=== PATIENT | female | born 1995 | race Caucasian/White ===

== ENCOUNTER 2018-01-08 18:21 | Emergency (ER) | payer MEDICAID ==
--- NOTE | 2018-01-08 19:10 | EDPHY ---
H & P Stated Complaint: hit head on snow snowboarding, h/a, n/v, no loc Time Seen by Provider: 01/08/18 19:10 HPI/ROS: HPI CHIEF COMPLAINT: Fall, head injury HISTORY OF PRESENT ILLNESS: 22-year-old female, visiting from [place], visiting a friend here, [place], she fell backwards and struck her head. She was not wearing helmet. This happened over 2 hr ago. She complains of a posterior headache and frontal headache with throbbing in nature. Also complains of neck pain. Denies chest pain or shortness of breath. Feels nauseous. She did have 1 [place] Past Medical History: Denies medical history Past Surgical History: Denies surgical history Social History: Denies drugs alcohol tobacco. Family History: Noncontributory ROS REVIEW OF SYSTEMS: 10 Systems were reviewed and negative with the exception of the elements mentioned in the history of present illness. Exam Constitutional nontoxic triage nursing summary reviewed, vital signs reviewed, awake/alert. Eyes normal conjunctivae and sclera, EOMI, PERRLA. HENT head/neck atraumatic on exam no midline cervical spine pain or step-offs, moist mucus membranes, no epistaxis, neck supple/ no meningismus, no raccoon eyes. Respiratory clear to auscultation bilaterally, normal breath sounds, no respiratory distress, no wheezing. Cardiovascular rate normal, regular rhythm, no murmur, no edema, distal pulses normal. Gastrointestinal soft, non-tender, no rebound, no guarding, normal bowel sounds, no distension, no pulsatile mass. Genitourinary no CVA tenderness. Musculoskeletal no midline vertebral tenderness, full range of motion, no calf swelling, no tenderness of extremities, no meningismus, good pulses, neurovascularly intact. Skin pink, warm, & dry, no rash, skin atraumatic. Neurologic normal neurological exam awake, alert and oriented x 3, AAOx3, moves all 4 extremities equally, motor intact, sensory intact, CN II-XII intact , normal cerebellar, normal vision, normal speech. Psychiatric normal mood/affect. Heme/Lymph/Immune no lymphadenopathy. Differential Diagnosis: Includes but is not limited to in a particular order closed-head injury, intracranial bleed, subdural, traumatic subarachnoid, skull fracture, concussion Medical Decision Making: Plan for this patient CT scan head without contrast and CT cervical spine without contrast reason for the scans head trauma nausea vomiting head strike on ground without a helmet. Re-evaluation: Additionally patient be given Tylenol Motrin for pain control. CT head and neck. Re-evaluate. CT scan head without contrast and CT cervical spine without contrast for trauma in the setting of head injury with vomiting after she struck her head against the ground snowboarding shows no acute skull fracture brain bleed or cervical spine injury. Called to me by Dr. Bardales. Patient clinically has a closed head injury with concussion. I have given her concussion follow-up instructions. Recommend she takes it easy over the next few days, low stimulus environment, stays well hydrated, anti-inflammatory pain medicine. Nausea medicine. Return precautions discussed with the patient as well as her friend at bedside. They understand. Source: Patient - Personal History LMP (Females 10-55): 8-14 Days Ago Current Tetanus/Diphtheria Vaccine: Unsure Current Tetanus Diphtheria and Acellular Pertussis (TDAP): Unsure - Medical/Surgical History Hx Asthma: No Hx Chronic Respiratory Disease: No Hx Diabetes: No Hx Cardiac Disease: No Hx Renal Disease: No Hx Cirrhosis: No Hx Alcoholism: No Hx HIV/AIDS: No Hx Splenectomy or Spleen Trauma: No Other PMH: denies - Social History Smoking Status: Never smoked Constitutional: Initial Vital Signs Temperature (C) 36.5 C 01/08/18 18:22 Heart Rate 68 01/08/18 18:22 Respiratory Rate 16 01/08/18 18:22 Blood Pressure 134/90 H 01/08/18 18:22 O2 Sat (%) 97 01/08/18 18:22 O2 Delivery Mode Room Air Allergies/Adverse Reactions: No Known Allergies Allergy (Unverified 01/08/18 20:11) Home Medications: Medication Instructions Recorded Ibuprofen [Motrin (*)] 800 mg PO Q6-8PRN #10 tab 01/08/18 Ondansetron HCl [Zofran] 4 mg PO Q4-6PRN PRN #10 tablet 01/08/18 Medical Decision Making - Data Points Medications Given: Discontinued Medications Acetaminophen (Tylenol) 1,000 mg PO EDNOW ONE Stop: 01/08/18 19:14 Last Admin: 01/08/18 19:27 Dose: 1,000 mg Ibuprofen (Motrin) 800 mg PO EDNOW ONE Stop: 01/08/18 19:14 Last Admin: 01/08/18 19:27 Dose: 800 mg Ondansetron HCl (Zofran Odt) 4 mg PO EDNOW ONE Stop: 01/08/18 19:14 Last Admin: 01/08/18 19:27 Dose: 4 mg Departure - Departure Disposition: Home, Routine, Self-Care Clinical Impression: Head injury Qualifiers: Encounter type: initial encounter Qualified Code(s): S09.90XA - Unspecified injury of head, initial encounter Concussion Qualifiers: Encounter type: initial encounter Loss of consciousness presence/duration: without LOC Qualified Code(s): S06.0X0A - Concussion without loss of consciousness, initial encounter Condition: Good Instructions: Concussion (ED), Head Injury (ED) Additional Instructions: 1. Rest and take it easy. 2. Recommend you alternate anti-inflammatory pain is some for pain control Tylenol Motrin 3. Zofran for nausea. 4. Follow up with her primary care doctor 5. Return if worse. Worsening headache vomiting or not doing well. Referrals: NONE *PRIMARY CARE P,. [Primary Care Provider] - As per Instructions Wen Daniels MD [Medical Doctor] - As per Instructions Prescriptions: Ibuprofen [Motrin (*)] 800 mg PO Q6-8PRN #10 tab Ondansetron HCl [Zofran] 4 mg PO Q4-6PRN PRN #10 tablet PRN Reason: Nausea/Vomiting, Use 1st
[2018-01-08] MEDS ORDERED: ACETAMINOPHEN 500 MG TAB PO ONE (19:13)
[2018-01-08] MEDS ORDERED: ONDANSETRON DISINTEGRATING 4 MG TAB PO ONE (19:13)
[2018-01-08] MEDS ORDERED: IBUPROFEN 800 MG TAB PO ONE (19:13)
[2018-01-08 20:18] VITALS: BP 129/85
== END 2018-01-08 20:18 | disposition home or self-care (01) ==
DX: S06.0X0A Concussion without loss of consciousness, initial encounter (principal); Y93.23 Activity, snow (alpine) (downhill) skiing, snowboarding, sledding, tobogganing and snow tubing; V00.311A Fall from snowboard, initial encounter; Y92.828 Other wilderness area as the place of occurrence of the external cause